=== PATIENT | male | born 1985 | race African-American/Black ===

== ENCOUNTER 2021-04-14 14:01 | Emergency (ER) | payer SELFPAY ==
[2021-04-14] MEDS ORDERED: Ibuprofen 800 MG TAB ONE (15:10)
== END 2021-04-14 15:14 | disposition home or self-care (01) ==
LOC: NAV ERS 14:01
DX: S60.011A Contusion of right thumb without damage to nail, initial encounter (principal); W22.8XXA Striking against or struck by other objects, initial encounter; F17.210 Nicotine dependence, cigarettes, uncomplicated